=== PATIENT | male | born 1990 | race Caucasian/White ===

== ENCOUNTER 2024-02-21 08:05 | Emergency (ER) | payer OTHER ==
[~2024-02-21] VITALS: Ht 185.4 cm; Wt 79.4 kg
[2024-02-21] MEDS: LIDOCAINE HCL 1% 20 ML VIAL INJ STA (08:40)
[2024-02-21] MEDS: BACITRACIN 1 EACH PACKET TP ONE ×2 (08:45→08:46)
[2024-02-21] MEDS ORDERED: CEPH500B PO (08:56)
[2024-02-21 09:04] VITALS: BP 125/80; PULSE 81; RESP 20; TEMP 98.3; O2SAT 100
== END 2024-02-21 09:24 | disposition home or self-care (01) ==
LOC: EEVIPCON 08:05 → EDH 08:05
DX: S61.212A Laceration without foreign body of right middle finger without damage to nail, initial encounter (principal); X58.XXXA Exposure to other specified factors, initial encounter; Y93.89 Activity, other specified; Y92.89 Other specified places as the place of occurrence of the external cause; Y99.8 Other external cause status
CPT/HCPCS: 12002; 73130